=== PATIENT | female | born 2005 | race Caucasian/White ===

== ENCOUNTER 2024-05-12 14:18 | Emergency (ER) | payer MEDICAID ==
[~2024-05-12] VITALS: Ht 152.4 cm; Wt 72.0 kg
[2024-05-12 14:21] VITALS: TEMP 98.4; O2SAT 99
[2024-05-12] MEDS: LEVETIRACETAM 1000MG PREMIX 100 ML IV ONE (15:09)
[2024-05-12 17:32] LABS: BASOPHILS % 0.2 % (0.0-2.0); EOSINOPHILS % 0.8 % (0.0-5.0); HEMOGLOBIN. 15.4 g/dL (12.0-16.0); LYMPHOCYTES % 20.2 % (20.0-50.0); MEAN CORPUSCULAR HEMOGLOBIN 28.7 pg (28.0-32.0); MEAN CORPUSCULAR HGB CONC 34.2 g/dL (31.0-37.0); MEAN CORPUSCULAR VOLUME 84.1 fL (81.0-99.0); MEAN PLATELET VOLUME 6.3 fl (7.4-10.4); MONOCYTES % 5.6 % (2.0-8.0); NEUTROPHILS % 73.2 % (40.0-76.0); PLATELET 222 x1000/uL (130-400); RED BLOOD CELL COUNT 5.35 mill/uL (4.2-5.4); RED CELL DISTRIBUTION WIDTH 14.3 % (11.6-14.6); WHITE BLOOD COUNT 5.2 x1000/uL (4.5-11.0)
[2024-05-12 17:41] LABS: CHLORIDE 98 mEq/L (98-107); POTASSIUM 4.2 mEq/L (3.5-5.1); SODIUM 128 mEq/L (136-145)
[2024-05-12 17:42] LABS: CALCIUM 9.7 mg/dL (8.7-10.4); CARBON DIOXIDE 20 mEq/L (21-32)
[2024-05-12 17:47] LABS: CREATININE 0.4 mg/dL (0.6-1.0); GLUCOSE 86 mg/dL (70-105)
[2024-05-12 17:55] LABS: HCG SCREEN NEGATIVE
[2024-05-12 17:56] LABS: ETHANOL BLOOD < 10 mg/dL (<10); UREA NITROGEN BLOOD < 5 mg/dL (9-23)
[2024-05-12 18:41] VITALS: BP 129/77; PULSE 75; RESP 25; O2SAT 99
== END 2024-05-12 19:09 | disposition short-term general hospital (02) ==
LOC: ER 14:18 → CANBEDREQ 17:38 → ER 19:09
DX: G40.909 Epilepsy, unspecified, not intractable, without status epilepticus (principal); F84.0 Autistic disorder; M41.9 Scoliosis, unspecified
CPT/HCPCS: 80048; 80320; 84703; 85025; 36415; 71045; 93005; 96365; 96366; 99285; J1953; A4663; A4606; G0480